=== PATIENT | female | born 1950 | race Caucasian/White ===

== ENCOUNTER 2023-07-23 15:39 | Inpatient (IN) ==
--- NOTE | 2023-07-23 15:53 | Emergency Department Note ---
Impression & Plan Ambulatory dysfunction, Acute bilateral knee pain Admission ED Provider Note HPI: History obtained from patient. The patient is a 73-year-old female who presents the emergency department with chief complaint of a mechanical fall. Patient states she has a longstanding history of bilateral knee pain, she has osteoarthritis and morbid obesity. Patient states that she was recommended to have her knees replaced about 6 to 8 years ago. Patient states that she was standing in her kitchen when her knees "gave out" and she fell to the ground. Patient was able to call her niece who then contacted EMS and the patient was brought to the ED. Patient denies any current focal complaint of pain, she states she was hoping to see a "knee specialist" to help arrange for her to get her surgery since her ambulatory dysfunction is getting worse recently. On arrival here to the ED the patient is otherwise hemodynamically stable, she appears to be in no acute distress on my initial assessment. ROS: - Per HPI Differential Diagnosis: Osteoarthritis, knee fracture, knee dislocation, acute on chronic ambulatory dysfunction secondary to osteoarthritis and morbid obesity, skull fracture, intracranial hemorrhage to include subdural hematoma, amongst other potential pathologies. *Outpatient medications and allergy history reviewed. PE: General: Alert, morbidly obese, no acute distress HEENT: Normocephalic, trachea midline Eyes: Extraocular eye movement is intact, no scleral erythema Pulmonary: Clear to auscultation bilaterally, no wheezing Cardio: Regular rate and rhythm GI: Abdomen is soft to palpation : No suprapubic tenderness MSK: Knees and bilateral braces Skin: No evidence of rash Neuro: Alert, no focal deficits Psychiatric: Cooperative INDEPENDENT INTERPRETATIONS: monitoring tech: (As interpreted by myself): - An order was placed for continuous cardiac monitoring - Patient was noted to be in sinus rhythm with a rate of 70 EKG: (As interpreted by myself): Rate: 85 Rhythm: Sinus rhythm Intervals: Within normal limits ST changes: No ST elevation Time: 1545 Medical Decision Making: IV was established and lab work obtained, lab work shows no leukocytosis, hemoglobin is normal, platelet count is normal, CMP does not show any critical findings, BUN is slightly elevated at 32, glucose is elevated at 249 without any anion gap elevation. CT imaging of the head does not show any evidence of any acute intracranial process. X-ray imaging of the bilateral knees does not show any evidence of fracture or dislocation, osteoarthritis is noted. Patient tells me she cannot ambulate and does not feel comfortable going home, she states that she needs likely to be admitted for PT/OT and she would also like an orthopedic consultation to discuss replacement of her knees. I discussed the patient's presentation with the on-call hospitalist, Dr. Brewer, and the patient was placed for admission in stable condition. Consultants/Discussions held with other healthcare providers: -Hospitalist, Dr. Brewer Disposition discussion held by myself with: -Patient Diagnosis: 1. Ambulatory dysfunction, acute on chronic 2. Mechanical fall, acute 3. Bilateral knee pain, chronic, related to osteoarthritis 4. Morbid obesity Disposition: Admission Sudheer Nath DO Emergency Medicine Past Med/Surg History Problem List (Updated 07/23/23 @ 19:47 by Jakob Jordan PA-C) DMII (diabetes mellitus, type 2) Ambulatory dysfunction Acute bilateral knee pain (Acute) Lymphedema Osteoarthritis of right knee Degenerative joint disease (DJD) of hip (Acute) Medical History Degenerative joint disease (DJD) of hip GERD (gastroesophageal reflux disease) Lymphedema Seizure Surgical History History of hip replacement Social History Smoking Status: Never smoker Preferred Language: Yi Feels Safe at Home: Yes Allergies Allergies Allergy/AdvReac Type Severity Reaction Status Date / Time nickel Allergy Unknown RASH Verified 07/23/23 16:08 pioglitazone Allergy Unknown UNKNOWN Verified 07/23/23 16:08 D/C BY PCP lisinopril AdvReac Mild COUGH Verified 07/23/23 16:08 metformin AdvReac Mild DIARRHEA Verified 07/23/23 16:08 sulfamethoxazole [Bactrim] AdvReac Mild NAUSEA AND Verified 07/23/23 16:08 VOMITING trimethoprim [Bactrim] AdvReac Mild NAUSEA AND Verified 07/23/23 16:08 VOMITING Home Meds Home Medications Medication Instructions Recorded Confirmed atorvastatin 20 mg tablet 20 mg PO HS 09/11/20 07/23/23 losartan 100 mg tablet 100 mg PO QAM 09/11/20 07/23/23 phenobarbital 32.4 mg tablet 64.8 mg PO BID 09/11/20 07/23/23 phenytoin sodium extended 100 mg 200 mg PO BID 09/11/20 07/23/23 capsule (Dilantin Extended) sitagliptin phosphate 100 mg 100 mg PO QAM 09/11/20 07/23/23 tablet (Januvia) folic acid 1 mg tablet 1 mg PO DAILY 01/20/23 07/23/23 torsemide 20 mg tablet 20 mg PO QAM 01/20/23 07/23/23 Results & Data (ED) Vital Signs Vital Signs - 24 hr 07/23/23 15:46 07/23/23 15:47 07/23/23 17:47 Temperature 37.1 C Temperature Source Oral Pulse Rate 90 90 Pulse Rate [Finger] 78 Respiratory Rate 22 18 Blood Pressure 122/65 Blood Pressure [Right Arm] 140/63 Blood Pressure Mean 84 Blood Pressure Mean [Right Arm] 88 Pulse Oximetry 96 94 Oxygen Delivery Method Room Air Room Air Sepsis Recent Fever Within 48 Hours No Sepsis New/Unexplained Change in Mental Status No Sepsis Action Taken by Nursing No Action Required 07/23/23 19:25 Temperature Temperature Source Pulse Rate Pulse Rate [Finger] 77 Respiratory Rate 19 Blood Pressure Blood Pressure [Right Arm] 142/106 H Blood Pressure Mean Blood Pressure Mean [Right Arm] 118 Pulse Oximetry 96 Oxygen Delivery Method Room Air Sepsis Recent Fever Within 48 Hours Sepsis New/Unexplained Change in Mental Status Sepsis Action Taken by Nursing Laboratory Data 07/23/23 15:59 07/23/23 15:59 Lab Results 07/23/23 Range/Units 15:59 WBC 8.97 (4.8-10.8) K/ul RBC 4.56 (4.20-5.40) M/uL Hgb 15.2 (12.0-16.0) g/dl Hct 44.8 (37.0-47.0) % MCV 98.2 (80.0-100.0) fL MCH 33.3 (25.0-34.0) pg MCHC 33.9 (32.0-36.0) g/dL RDW Std Deviation 46.9 H (36.4-46.3) fL RDW Coeff of Anshu 13.1 (11.5-14.5) % Plt Count 164 (130-400) K/uL MPV 9.8 (9.4-12.4) fL Immature Gran % (Auto) 0.4 % Neut % (Auto) 80.3 % Lymph % (Auto) 11.9 % [place] % (Auto) 5.2 % Eos % (Auto) 1.6 % Baso % (Auto) 0.6 % Neut # (Auto) 7.20 H (1.40-6.50) K/uL Lymph # (Auto) 1.07 L (1.20-3.40) K/uL [place] # (Auto) 0.47 (0.11-0.59) K/uL Eos # (Auto) 0.14 (0.00-0.50) K/uL Baso # (Auto) 0.05 (0.00-0.20) K/uL Immature Gran # (Auto) 0.04 (0.01-0.20) K/uL PT 11.6 (9.0-12.0) Seconds INR 1.1 (0.9-1.1) Sodium 136 (136-145) mmol/L Potassium 3.9 (3.5-5.1) mmol/L Chloride 106 (98-107) mmol/L Carbon Dioxide 22 (21-32) mmol/L Anion Gap 8 (3-11) BUN 32 H (6-23) mg/dl Creatinine 0.88 (0.6-1.2) mg/dl Est Cr Clr Drug Dosing 84.5 ml/min Est GFR ( Amer) 75.0 ml/min Est GFR (Non-Af Amer) 64.7 ml/min BUN/Creatinine Ratio 36.4 H (10-20) Glucose 249 H (70-99(Fasting)) mg/dl Calcium 8.6 (8.6-10.3) mg/dl Total Bilirubin 0.5 (0.2-1.0) mg/dl AST 13 (13-39) U/L ALT 13 (7-52) U/L Alkaline Phosphatase 125 H (34-104) U/L Total Protein 6.7 (6.0-8.3) gm/dl Albumin 3.6 (3.4-5.0) gm/dl Globulin 3.1 (2.5-4.0) gm/dl Albumin/Globulin Ratio 1.2 (0.9-2) Lipase 37 (11-82) U/L Administered Medications Discontinued Medications Acetaminophen (Acetaminophen 325 Mg Tab) 650 mg PO NOW STA Stop: 07/23/23 18:01 Last Admin: 07/23/23 19:28 Dose: 650 mg Documented By: ANDREA Imaging Data Radiologist's Impression: Head CT 07/23/23 15:49 CT head/brain wo con CLINICAL HISTORY: 73 years-old Female with fall. Acute trauma status post fall TECHNIQUE: Multiple axial CT images of the head were obtained without contrast. A dose lowering technique was utilized adhering to the principles of ALARA. CT DOSE: 547.75 mGy.cm COMPARISON: None. FINDINGS: No acute intracranial hemorrhage, midline shift, intracranial mass, hydrocephalus, territorial ischemia or abnormal extra-axial collection. Involutional changes with chronic microvascular ischemic disease. The calvarium is intact. Hyperostosis frontalis interna. The paranasal sinuses, mastoid air cells, and middle ear cavities are clear. IMPRESSION: No acute intracranial abnormality or calvarial fracture. ACT 112: Negative or not required by law. The above report was generated using voice recognition software. It may contain grammatical, syntax or spelling errors. Electronically signed by: Jonnie Vargas M.D. 07/23/2023 4:16 PM Knee X-Ray 07/23/23 15:49 XR knee LT 1 or 2V routine, XR knee RT 1 or 2V routine HISTORY: 73 years-old Female fall acute bilateral knee pain status post fall COMPARISON: 01/20/2023 TECHNIQUE: 3 views of bilateral knees FINDINGS: LEFT: Progressive severe tricompartmental osteoarthritis. Trace joint effusion. No acute fracture or dislocation. RIGHT: Progressive severe tricompartmental osteoarthritis. Trace joint effusion. Lower leg soft tissue calcifications. No acute fracture or dislocation. IMPRESSION: Severe arthritis without acute fracture or dislocation. ACT 112: Negative or not required by law. The above report was generated using voice recognition software. It may contain grammatical, syntax or spelling errors. Electronically signed by: Jonnie Vargas M.D. 07/23/2023 5:36 PM Knee X-Ray 07/23/23 15:49 XR knee LT 1 or 2V routine, XR knee RT 1 or 2V routine HISTORY: 73 years-old Female fall acute bilateral knee pain status post fall COMPARISON: 01/20/2023 TECHNIQUE: 3 views of bilateral knees FINDINGS: LEFT: Progressive severe tricompartmental osteoarthritis. Trace joint effusion. No acute fracture or dislocation. RIGHT: Progressive severe tricompartmental osteoarthritis. Trace joint effusion. Lower leg soft tissue calcifications. No acute fracture or dislocation. IMPRESSION: Severe arthritis without acute fracture or dislocation. ACT 112: Negative or not required by law. The above report was generated using voice recognition software. It may contain grammatical, syntax or spelling errors. Electronically signed by: Jonnie Vargas M.D. 07/23/2023 5:36 PM Chest X-Ray 07/23/23 18:10 XR chest 1V portable HISTORY: 73 years-old Female Fall, bruising on chest acute chest trauma COMPARISON: 08/23/2014 TECHNIQUE: AP view the chest FINDINGS: Cardiac silhouette is enlarged. Hiatal hernia. Right hemidiaphragmatic elevation. Mild linear left basilar atelectasis versus scarring. No pneumothorax, pleural effusion or pulmonary edema. Bones appear grossly intact. IMPRESSION: No acute process. ACT 112: Negative or not required by law. The above report was generated using voice recognition software. It may contain grammatical, syntax or spelling errors. Electronically signed by: Jonnie Vargas M.D. 07/23/2023 6:31 PM Discharge Plan Visit Data Chief Complaint: Fall ED Provider: Sudheer Nath Discharge Problem: Ambulatory dysfunction, Acute bilateral knee pain Patient Disposition: Admitted As Inpatient Discharge Instructions Interventions: ED Discharge Assessment Last Done: 07/23/23 19:32 Prescriptions Prescriptions: No Action atorvastatin 20 mg tablet 20 mg PO HS phenytoin sodium extended [Dilantin Extended] 100 mg capsule 200 mg PO BID losartan 100 mg tablet 100 mg PO QAM phenobarbital 32.4 mg tablet 64.8 mg PO BID Januvia 100 mg tablet 100 mg PO QAM torsemide 20 mg tablet 20 mg PO QAM folic acid 1 mg tablet 1 mg PO DAILY
[2023-07-23 16:14] LABS: Basophils # (auto) 0.05 K/uL (0.00-0.20); Basophils % (auto) 0.6 %; Eosinophils # (auto) 0.14 K/uL (0.00-0.50); Eosinophils % (auto) 1.6 %; Hematocrit (blood only) 44.8 % (37.0-47.0); Hemoglobin 15.2 g/dl (12.0-16.0); Immature Granulocytes # (auto) 0.04 K/uL (0.01-0.20); Immature Granulocytes % (auto) 0.4 %; Lymphocytes # (auto) 1.07 K/uL (1.20-3.40); Lymphocytes % (auto) 11.9 %; Mean Corpuscular Hemoglobin 33.3 pg (25.0-34.0); Mean Corpuscular Hgb Conc 33.9 g/dL (32.0-36.0); Mean Corpuscular Volume 98.2 fL (80.0-100.0); Mean Platelet Volume 9.8 fL (9.4-12.4); Monocytes # (auto) 0.47 K/uL (0.11-0.59); Monocytes % (auto) 5.2 %; Neutrophils % (auto) 80.3 %; Platelet Count 164 K/uL (130-400); RDW Coefficient of Variation 13.1 % (11.5-14.5); RDW Standard Deviation 46.9 fL (36.4-46.3); Red Blood Count 4.56 M/uL (4.20-5.40); White Blood Count 8.97 K/ul (4.8-10.8)
--- NOTE | 2023-07-23 16:17 | CT Scan Report ---
CT head/brain wo con CLINICAL HISTORY: 73 years-old Female with fall. Acute trauma status post fall TECHNIQUE: Multiple axial CT images of the head were obtained without contrast. A dose lowering tech nique was utilized adhering to the principles of ALARA. CT DOSE: 547.75 mGy.cm COMPARISON: None. FINDINGS: No acute intracranial hemorrhage, midline shift, intracranial mass, hydrocephalus, territorial ischem ia or abnormal extra-axial collection. Involutional changes with chronic microvascular ischemic disea se. The calvarium is intact. Hyperostosis frontalis interna. The paranasal sinuses, mastoid air cells, an d middle ear cavities are clear. IMPRESSION: No acute intracranial abnormality or calvarial fracture. ACT 112: Negative or not required by law. The above report was generated using voice recognition software. It may contain grammatical, syntax o r spelling errors. Electronically signed by: Jonnie Vargas M.D. 07/23/2023 4:16 PM
[2023-07-23 16:32] LABS: Albumin Globulin Ratio 1.2 (0.9-2); Albumin Level 3.6 gm/dl (3.4-5.0); BUN Creatinine Ratio 36.4 (10-20); Bilirubin,Total 0.5 mg/dl (0.2-1.0); Calcium 8.6 mg/dl (8.6-10.3); Creatinine Clr Calc Pharmacy 84.5 ml/min; Est GFR (Non-African American) 64.7 ml/min; Globulin 3.1 gm/dl (2.5-4.0); Potassium 3.9 mmol/L (3.5-5.1); Total Protein 6.7 gm/dl (6.0-8.3)
[2023-07-23 16:39] LABS: INR 1.1 (0.9-1.1); Prothrombin Time 11.6 Seconds (9.0-12.0)
--- NOTE | 2023-07-23 17:38 | XRay Report ---
XR knee LT 1 or 2V routine, XR knee RT 1 or 2V routine HISTORY: 73 years-old Female fall acute bilateral knee pain status post fall COMPARISON: 01/20/2023 TECHNIQUE: 3 views of bilateral knees FINDINGS: LEFT: Progressive severe tricompartmental osteoarthritis. Trace joint effusion. No acute fracture or disloc ation. RIGHT: Progressive severe tricompartmental osteoarthritis. Trace joint effusion. Lower leg soft tissue calci fications. No acute fracture or dislocation. IMPRESSION: Severe arthritis without acute fracture or dislocation. ACT 112: Negative or not required by law. The above report was generated using voice recognition software. It may contain grammatical, syntax o r spelling errors. Electronically signed by: Jonnie Vargas M.D. 07/23/2023 5:36 PM
--- NOTE | 2023-07-23 17:44 | History & Physical Report ---
Date of Service July 23, 2023 Assessment & Plan (1) Ambulatory dysfunction: Plan: -Admit to med/surge -Stable and non-toxic appearing -Presented to the ED after sustaining a GLF this afternoon -Left knee "gave out" causing fall, no prodromal symptoms -Did hit her head but no LOC -CT of the head/brain wo con and BL xray of the knees were negative for acute findings -Chest xray obtained on admission was negative for acute findings -Is unable to safely ambulate at this time due to pain from BL knee OA -PT/OT consults placed, she will need rehab/placement on discharge -Could consider Orthopedic Surgery consult for possible intervention prior to discharge -Pain control with tylenol for now -SQ Heparin for DVT PPX -HH/DMII diet -AM CBC, BMP, mag (2) Acute bilateral knee pain: Plan: -Patient has severe BL arthritis of the knees -No acute trauma on xrays today -PT/OT, fall precautions -PRN tylenol and tramadol for pain (3) Fall: Plan: -See ambulatory dysfunction (4) Lymphedema: Plan: -Continue home torsemide (5) Seizure: Plan: -No recent seizures -Continue Dilantin and Phenobarbital -Will obtain Dilantin level on admission (6) DMII (diabetes mellitus, type 2): Plan: -Hold Januvia -Monitor BSG ACHS, goal is 110-160 -Start 5 units Lantus BID -CF 30 and CR of 11 -Adjust regimen as needed History of Present Illness Chief Complaint: Fall at home Primary Care Provider: Suleman Fernandez Raysa Hernandez is a 73 year old female with a PMH significant for morbid obesity, arthritis of the BL knees, HTN, hyperlipidemia, DMII, and lymphedema who presented to the [facility] ED via EMS on 07/23/23 after sustaining a ground level fall at home this afternoon. She remained stable in the ED. Labs including CBC and CMP were unremarkable. CT of the head/brain wo con was read as negative for acute findings. BL knee xrays were read as having severe OA BL without acute fractures. We were asked to admit the patient as she is able to be safely discharged home with her ambulatory dysfunction. At the time of the exam the patient was lying in bed in no acute distress. She explains that she was told approximately 6 years that she needed to have both knees replaced due to severe OA. She continued to push this off and has had ongoing ambulatory dysfunction since. She has two large knee braces which have provided some support. She lives at home alone, but has a son who lives next door and two grandchildren who have been trying to help care for her. She states that this am she was in her kitchen walking back to her bedroom to eat lunch. While walking in the hallway her left knee suddenly gave out, causing her to fall forwards. She sustained the upper lip abrasion when her face hit the carpet. She did not lose consciousness and did not have symptoms such as chest pain, SOB, palpitations, lightheadedness, or dizziness prior to her fall. EMS was called as family was unable to get her up. Her only complaints at this time is chronic BL knee pain. She denies any other pain at this time. She explains that she has a right heel ulcer from previously stepping on glass at home. Her Grandson had been cleaning it and putting antibiotic ointment on it daily. 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 We discussed code status, she wishes to be a full code. Her daughter is her POA. Please refer to Dr. Brewer's attestation for any changes to the treatment plan Allergies Allergy/AdvReac Type Severity Reaction Status Date / Time nickel Allergy Unknown RASH Verified 07/23/23 16:08 pioglitazone Allergy Unknown UNKNOWN Verified 07/23/23 16:08 D/C BY PCP lisinopril AdvReac Mild COUGH Verified 07/23/23 16:08 metformin AdvReac Mild DIARRHEA Verified 07/23/23 16:08 sulfamethoxazole [Bactrim] AdvReac Mild NAUSEA AND Verified 07/23/23 16:08 VOMITING trimethoprim [Bactrim] AdvReac Mild NAUSEA AND Verified 07/23/23 16:08 VOMITING Home Medications Medication Instructions Recorded Confirmed Type atorvastatin 20 mg tablet 20 mg PO HS 09/11/20 07/23/23 History losartan 100 mg tablet 100 mg PO QAM 09/11/20 07/23/23 History phenobarbital 32.4 mg tablet 64.8 mg PO BID 09/11/20 07/23/23 History phenytoin sodium extended 100 mg 200 mg PO BID 09/11/20 07/23/23 History capsule (Dilantin Extended) sitagliptin phosphate 100 mg 100 mg PO QAM 09/11/20 07/23/23 History tablet (Januvia) folic acid 1 mg tablet 1 mg PO DAILY 01/20/23 07/23/23 History torsemide 20 mg tablet 20 mg PO QAM 01/20/23 07/23/23 History Past Med/Surg History Problem List (Updated 07/23/23 @ 19:47 by Jakob Jordan PA-C) DMII (diabetes mellitus, type 2) Ambulatory dysfunction Acute bilateral knee pain (Acute) Lymphedema Osteoarthritis of right knee Degenerative joint disease (DJD) of hip (Acute) Medical History Degenerative joint disease (DJD) of hip GERD (gastroesophageal reflux disease) Lymphedema Seizure Surgical History History of hip replacement Social History Smoking Status: Never smoker Preferred Language: Wolof Feels Safe at Home: Yes Physical Exam 2 Physical Exam: Physical Exam: General: In no acute distress, stated age, morbidly obese,chronically ill appearing HEENT: No scleral icterus, pupils around round, symmetrical, and reactive to light, moist mucus membranes, skin abrasion to the left upper lip is not currently bleeding, trachea midline, no thyromegaly Chest/Pulm: Patient with abrasions on the anterior chest from fall, No respiratory distress, symmetrical chest expansion, clear breath sounds throughout Cardiac: RRR, no murmurs noted Abdomen: Negative for ascites and bruising, normoactive bowel sounds, soft, non-tender to palpation throughout Musculoskeletal: Braces noted on the BL knees, no acute trauma on inspection and palpation of the head, neck, BL UE's, chest, abdomen, pelvis, and BL LE's Extremities: Radial, dorsalis pedis, and posterior tibial pulses are intact and symmetrical, chronic lymphedema noted in the BL LE's Skin: Paient with non-infected ulcer of the right heel from previous laceration, no currently draining Neuro: Alert and oriented to person, place, month, year, and president, no focal defects, no tremors noted Psych: No acute distress, calm and cooperative during the exam Results & Data Results & Data Vital Signs (Past 12 Hours) Vital Signs Temp Pulse Resp BP Pulse Ox O2 Del Method 07/23/23 15:47 37.1 C 90 22 122/65 96 Room Air 07/23/23 15:46 90 Laboratory Results Abnormal lab results 07/23/23 Range/Units 15:59 RDW Std Deviation 46.9 H (36.4-46.3) fL Neut # (Auto) 7.20 H (1.40-6.50) K/uL Lymph # (Auto) 1.07 L (1.20-3.40) K/uL BUN 32 H (6-23) mg/dl BUN/Creatinine Ratio 36.4 H (10-20) Glucose 249 H (70-99(Fasting)) mg/dl Alkaline Phosphatase 125 H (34-104) U/L Diagnostic Findings Head CT 07/23/23 15:49 CT head/brain wo con CLINICAL HISTORY: 73 years-old Female with fall. Acute trauma status post fall TECHNIQUE: Multiple axial CT images of the head were obtained without contrast. A dose lowering technique was utilized adhering to the principles of ALARA. CT DOSE: 547.75 mGy.cm COMPARISON: None. FINDINGS: No acute intracranial hemorrhage, midline shift, intracranial mass, hydrocephalus, territorial ischemia or abnormal extra-axial collection. Involutional changes with chronic microvascular ischemic disease. The calvarium is intact. Hyperostosis frontalis interna. The paranasal sinuses, mastoid air cells, and middle ear cavities are clear. IMPRESSION: No acute intracranial abnormality or calvarial fracture. ACT 112: Negative or not required by law. The above report was generated using voice recognition software. It may contain grammatical, syntax or spelling errors. Electronically signed by: Jonnie Vargas M.D. 07/23/2023 4:16 PM Knee X-Ray 07/23/23 15:49 XR knee LT 1 or 2V routine, XR knee RT 1 or 2V routine HISTORY: 73 years-old Female fall acute bilateral knee pain status post fall COMPARISON: 01/20/2023 TECHNIQUE: 3 views of bilateral knees FINDINGS: LEFT: Progressive severe tricompartmental osteoarthritis. Trace joint effusion. No acute fracture or dislocation. RIGHT: Progressive severe tricompartmental osteoarthritis. Trace joint effusion. Lower leg soft tissue calcifications. No acute fracture or dislocation. IMPRESSION: Severe arthritis without acute fracture or dislocation. ACT 112: Negative or not required by law. The above report was generated using voice recognition software. It may contain grammatical, syntax or spelling errors. Electronically signed by: Jonnie Vargas M.D. 07/23/2023 5:36 PM Knee X-Ray 07/23/23 15:49 XR knee LT 1 or 2V routine, XR knee RT 1 or 2V routine HISTORY: 73 years-old Female fall acute bilateral knee pain status post fall COMPARISON: 01/20/2023 TECHNIQUE: 3 views of bilateral knees FINDINGS: LEFT: Progressive severe tricompartmental osteoarthritis. Trace joint effusion. No acute fracture or dislocation. RIGHT: Progressive severe tricompartmental osteoarthritis. Trace joint effusion. Lower leg soft tissue calcifications. No acute fracture or dislocation. IMPRESSION: Severe arthritis without acute fracture or dislocation. ACT 112: Negative or not required by law. The above report was generated using voice recognition software. It may contain grammatical, syntax or spelling errors. Electronically signed by: Jonnie Vargas M.D. 07/23/2023 5:36 PM Chest X-Ray 07/23/23 18:10 XR chest 1V portable HISTORY: 73 years-old Female Fall, bruising on chest acute chest trauma COMPARISON: 08/23/2014 TECHNIQUE: AP view the chest FINDINGS: Cardiac silhouette is enlarged. Hiatal hernia. Right hemidiaphragmatic elevation. Mild linear left basilar atelectasis versus scarring. No pneumothorax, pleural effusion or pulmonary edema. Bones appear grossly intact. IMPRESSION: No acute process. ACT 112: Negative or not required by law. The above report was generated using voice recognition software. It may contain grammatical, syntax or spelling errors. Electronically signed by: Jonnie Vargas M.D. 07/23/2023 6:31 PM ECG Additional Comments: Sinus rhythm with frequent Premature ventricular complexes Left axis deviation Septal infarct , age undetermined Abnormal ECG When compared with ECG of 07-SEP-2014 06:35, Premature ventricular complexes are now Present Septal infarct is now Present T wave inversion no longer evident in Inferior leads Code Status & VTE Plan Code Status Full code VTE Prophylaxis Plan VTE Prophylaxis will be ordered: Yes PG Care Time/CCT Total # of Minutes Spent Total Time Spent with Patient: Total time spent is greater than 50% in coordination of care (as documented) at patient's floor/unit and/or counseling patient: C[place] [address] INT INP/OBS CARE 2/MIN Patient Type Established History Comprehensive Exam Comprehensive Medical Decision Making Moderate Complexity Diagnoses Ambulatory dysfunction R26.2 Acute bilateral knee pain M25.561; M25.562 Fall W19.XXXA Encounter type: initial encounter Lymphedema I89.0 Seizure R56.9 DMII (diabetes mellitus, type 2) E11.9 (3) Fall Encounter type: initial encounter Qualified Code(s): W19.XXXA - Unspecified fall, initial encounter
[2023-07-23] MEDS ORDERED: CARBOHYDRATES FOR HYPOGLYCEMIA PO PRN (18:06)
[2023-07-23] MEDS ORDERED: DEXTROSE 50% 50 ML SYRINGE IV PRN (18:06)
[2023-07-23] MEDS ORDERED: GLUCAGON FOR INJ 1 MG VIAL SQ PRN (18:06)
[2023-07-23] MEDS ORDERED: GLUCOSE 40% GEL 15 GM TUBE PO PRN (18:06)
[2023-07-23] MEDS ORDERED: GLUCOSE 10 TAB/TUBE PO PRN (18:06)
--- NOTE | 2023-07-23 18:33 | XRay Report ---
XR chest 1V portable HISTORY: 73 years-old Female Fall, bruising on chest acute chest trauma COMPARISON: 08/23/2014 TECHNIQUE: AP view the chest FINDINGS: Cardiac silhouette is enlarged. Hiatal hernia. Right hemidiaphragmatic elevation. Mild linear left ba silar atelectasis versus scarring. No pneumothorax, pleural effusion or pulmonary edema. Bones appear grossly intact. IMPRESSION: No acute process. ACT 112: Negative or not required by law. The above report was generated using voice recognition software. It may contain grammatical, syntax o r spelling errors. Electronically signed by: Jonnie Vargas M.D. 07/23/2023 6:31 PM
[2023-07-23] MEDS: ACETAMINOPHEN 325 MG TAB PO STA (19:28)
[2023-07-23] MEDS ORDERED: traMADol HCL 50 MG TABLET PO PRN (19:53)
[2023-07-23] MEDS: INSULIN ASPART PER UNIT CHARGE SC SCH (20:48)
[2023-07-23] MEDS: ACETAMINOPHEN 325 MG TAB PO SCH (21:30)
[2023-07-23] MEDS: HEPARIN SOD 5,000 UNIT/0.5 ML VIAL SQ SCH (21:30)
[2023-07-23] MEDS: PHENobarbitaL 30 MG TAB PO SCH (21:30)
[2023-07-23] MEDS: ATORVASTATIN 20 MG TAB PO SCH (21:30)
[2023-07-23] MEDS: PHENYTOIN SODIUM ER 100 MG CAP PO SCH (21:30)
[2023-07-23] MEDS: BACITRACIN OINT 14 GM TUBE EXT SCH (21:58)
[2023-07-23] MEDS: LANTUS PER UNIT CHARGE SQ SCH (22:03)
[2023-07-24 07:43] LABS: Hematocrit (blood only) 41.3 % (37.0-47.0); Hemoglobin 13.8 g/dl (12.0-16.0); Mean Corpuscular Hemoglobin 32.7 pg (25.0-34.0); Mean Corpuscular Hgb Conc 33.4 g/dL (32.0-36.0); Mean Corpuscular Volume 97.9 fL (80.0-100.0); Mean Platelet Volume 10.1 fL (9.4-12.4); Platelet Count 145 K/uL (130-400); RDW Coefficient of Variation 13.1 % (11.5-14.5); RDW Standard Deviation 47.5 fL (36.4-46.3); Red Blood Count 4.22 M/uL (4.20-5.40); White Blood Count 5.41 K/ul (4.8-10.8)
[2023-07-24 07:55] LABS: BUN Creatinine Ratio 37.1 (10-20); Calcium 8.5 mg/dl (8.6-10.3); Creatinine Clr Calc Pharmacy 120.1 ml/min; Est GFR (Non-African American) 88.8 ml/min; Magnesium 1.8 mg/dl (1.7-2.4); Potassium 3.9 mmol/L (3.5-5.1)
[2023-07-24 08:12] LABS: Estimated Average Glucose 148 mg/dl; Hemoglobin A1C 6.8 % (4.5-5.6)
--- NOTE | 2023-07-24 08:23 | Hospitalist Progress Note ---
Date of Service July 24, 2023 Assessment & Plan (1) Ambulatory dysfunction: Plan: -Pt admitted for ground level mechanical fall from ambulatory dysfunction in setting of severe b/l knee arthritis + R heel ulcer -Head CT negative, CXR negative, XR knees with degenerative arthritic change but no acute findings -PT/OT evaluations pending -Orthopedics consulted (2) Acute bilateral knee pain: Plan: -Patient has severe b/l arthritis of the knees -No acute trauma on admission XR -PT/OT evaluations pending, fall precautions -Scheduled Tylenol and oxycodone PRN for pain control -Orthopedics consult as above (3) Lymphedema: Plan: -Continue home torsemide (4) Seizure: Plan: -No recent seizures -Continue Dilantin and phenobarbital -Dilantin level on admission pending (5) DMII (diabetes mellitus, type 2): Plan: -Hold Januvia -Monitor BSG ACHS, goal is 110-160 -Lantus, SSI -Adjust regimen as needed (6) Heel ulcer: Plan: -R heel ulcer noted, likely contributing as well to ambulatory dysfunction -Does not appear acutely infected at present -Wound care consulted Plan FENGI: DM2 Code status: Full DVT prophylaxis: Lovenox Isolation: None Unit: Medical/surgical Disposition planning: Pending PT/OT Admission and Anticipated Discharge Date Admission Date: July 23, 2023 Supervising Physician Co-Signing Physician Notes Attending attestation Pt seen and examined in concert with Dr. Mcfarland. In agreement with the documented findings as noted in the resident documentation with any exceptions or additions as noted here. Ongoing bilateral knee pain which is ameliorated with position and offloading. Though heel pain has been present for 3 years per patient, recently noted ulcer of the heel and presumes time of extravasation. Unsure how long the ulcer has actually been there. Reviewed with patient that this may have been chronically present and painful. On examination, S1/S2 nl RRR no MCG. CTAB. Abd NT/ND BS+ve. Ulcer per image in HPI. No gross sensory deficit appreciated on examination. Bilateral knee osteoarthritis, acute on chronic, resulting in ambulatory dysfunction and ground level fall - PT/OT and ortho consult - open to rehabilitation services and interventions. Pain control as noted. Right heel ulcer, chronic, POA - unhealing, likely contributed to fall 2/2 pain and location. Wound care consult. No overt sign of infection at present. Monitor CBC. Lymphedema, chronic, stable - continue diuresis and monitor BMP daily DMII - continue glargine and ISS Else see resident documentation as noted. Subjective Acute events overnight- none. Pt examined at bedside. Denies any acute pain beyond baseline at present. Review of Systems 2 Review of Systems: Per HPI/Subjective Physical Exam 2 Physical Exam: Physical Exam: General: In no acute distress, stated age, morbidly obese, chronically ill appearing HEENT: No scleral icterus, moist mucus membranes, trachea midline Chest: Patient with abrasions on the anterior chest from fall, No respiratory distress, symmetrical chest expansion, clear breath sounds throughout Cardiac: RRR, no murmurs noted Musculoskeletal: Braces noted over the b/l knees, deferred ROM testing due to pain with movement Extremities: Chronic lymphedema noted in the b/l LE's, palpable b/l distal pulses 2+ Skin: Non-infected ulcer of the right heel from previous laceration, not currently draining Neuro: Alert and oriented, no focal defects, no tremors noted Psych: No acute distress, calm and cooperative during the exam Image below is from admission exam on 07/22 Results & Data Results & Data Vital Signs (Past 12 Hours) Vital Signs Temp Pulse Resp BP Pulse Ox O2 Del Method 07/24/23 07:37 36.6 C 65 16 134/70 93 Room Air
[2023-07-24] MEDS: LOSARTAN POTASSIUM 50 MG TAB PO SCH (08:55)
[2023-07-24] MEDS: TORSEMIDE 20 MG TAB PO SCH (08:55)
--- NOTE | 2023-07-24 09:04 | Electrocardiogram Report ---
Test Reason : Blood Pressure : / mmHG Vent. Rate : 085 BPM Atrial Rate : 085 BPM P-R Int : 194 ms QRS Dur : 090 ms QT Int : 394 ms P-R-T Axes : 077 -39 031 degrees QTc Int : 468 ms Sinus rhythm with frequent Premature ventricular complexes Left axis deviation Abnormal ECG When compared with ECG of 07-SEP-2014 06:35, Premature ventricular complexes are now Present Confirmed by Bc Jacques ([id number]) on 07/24/2023 9:04:03 AM Referred By: REFERRED SELF Confirmed By:Bc Jacques
[2023-07-24] MEDS ORDERED: oxyCODONE HCL IR 5 MG TAB (IMMEDIATE RELEASE) PO PRN (09:12)
--- NOTE | 2023-07-24 09:18 | Electrocardiogram Report ---
Test Reason : Blood Pressure : / mmHG Vent. Rate : 075 BPM Atrial Rate : 075 BPM P-R Int : 164 ms QRS Dur : 090 ms QT Int : 418 ms P-R-T Axes : 035 -43 051 degrees QTc Int : 466 ms Normal sinus rhythm Left axis deviation Abnormal ECG When compared with ECG of 23-JUL-2023 15:45, Premature ventricular complexes are no longer Present Confirmed by Bc Jacques ([id number]) on 07/24/2023 9:17:47 AM Referred By: REFERRED SELF Confirmed By:Bc Jacques
--- NOTE | 2023-07-24 10:37 | Orthopedic Consultation ---
Date of Service July 24, 2023 Assessment & Plan (1) Osteoarthritis of knees, bilateral: 1. Recommend the patient try to get up and transfer to a chair or ambulate with assistance to prevent blood clots 2. Recommend PT/OT with a b/l knee strengthening program 3. Patient may not be a good surgical candidate at this time due to comorbidities and deconditioning of lower extremities 4. Possible penitentiary care while ambulatory function is addressed? Patient was seen at bedside with Dr. Varner. He was present for the HX, PE, and plan and agrees with this course of action. History of Present Illness Reason for Consultation: . Requesting Physician: . Attending Physician: Bill Duarte MD Patient is a 73 y/o female presenting to [facility] yesterday, 07/23/23, with an unwitnessed fall. She states that her left knee gave on her. She fell down and was unable to get up due to pain and weakness. She was brought to [facility] ER and evaluated. No fractures or head trauma were identified. She has a HX of severe B/L OA of her knees. She was seen in ortho 1 year ago. Corticosteroid injections failed to give her any symptomatic relief at that time. She was not a good surgical candidate at the time due to DM2 and lymphedema in her lower extremities. She currently lives alone in a single level home. Allergies Allergy/AdvReac Type Severity Reaction Status Date / Time nickel Allergy Unknown RASH Verified 07/23/23 16:08 pioglitazone Allergy Unknown UNKNOWN Verified 07/23/23 16:08 D/C BY PCP lisinopril AdvReac Mild COUGH Verified 07/23/23 16:08 metformin AdvReac Mild DIARRHEA Verified 07/23/23 16:08 sulfamethoxazole [Bactrim] AdvReac Mild NAUSEA AND Verified 07/23/23 16:08 VOMITING trimethoprim [Bactrim] AdvReac Mild NAUSEA AND Verified 07/23/23 16:08 VOMITING Home Medications Medication Instructions Recorded Confirmed Type atorvastatin 20 mg tablet 20 mg PO HS 09/11/20 07/23/23 History losartan 100 mg tablet 100 mg PO QAM 09/11/20 07/23/23 History phenobarbital 32.4 mg tablet 64.8 mg PO BID 09/11/20 07/23/23 History phenytoin sodium extended 100 mg 200 mg PO BID 09/11/20 07/23/23 History capsule (Dilantin Extended) sitagliptin phosphate 100 mg 100 mg PO QAM 09/11/20 07/23/23 History tablet (Januvia) folic acid 1 mg tablet 1 mg PO DAILY 01/20/23 07/23/23 History torsemide 20 mg tablet 20 mg PO QAM 01/20/23 07/23/23 History Past Med/Surg History Problem List (Updated 07/24/23 @ 10:32 by Daniel Meyers PA-C) Osteoarthritis of knees, bilateral Heel ulcer DMII (diabetes mellitus, type 2) Ambulatory dysfunction Acute bilateral knee pain (Acute) Lymphedema Osteoarthritis of right knee Degenerative joint disease (DJD) of hip (Acute) Medical History Seizure GERD (gastroesophageal reflux disease) Lymphedema Surgical History History of hip replacement Social History Smoking Status: Never smoker Hx Alcohol Use: No Hx Substance Use: No Preferred Language: Divehi Communication Ability: Effective [place] Carpenter Required: No Beliefs That Will Affect Care: None Current Living Situation: Alone Current Living Situation Comment: SON LIVES CLOSE BY AND NIECE ALSO VISITS REGULARLY Feels Safe at Home: Yes Safety Concerns: Feels Safe At This Time Assistive Devices: Brace/Splint/Immobilizer and Cane Review of Systems All systems reviewed & are unremarkable except as noted in HPI & below. Physical Exam Patient is resting comfortably in bed. She has an obvious b/l valgus deformity of both knees. Evidence of lymphedema in her RLE. She has pain to palpation both medial and lateral joint lines b/l. Slight knee effusion to her left knee. She is able to do a straight leg raise LLE but assisted straight leg raise in RLE. Neurovasularly intact. Results & Data Results & Data Laboratory Results . Diagnostic Findings . PG Care Time/CCT Total # of Minutes Spent Total Time Spent with Patient: Total time spent is greater than 50% in coordination of care (as documented) at patient's floor/unit and/or counseling patient: Coding Level of Care Code 76331 IN/OBS CONSULT LVL 3,45M Diagnoses Osteoarthritis of knees, bilateral M17.0
--- NOTE | 2023-07-25 07:47 | Hospitalist Progress Note ---
Date of Service July 25, 2023 Assessment & Plan (1) Ambulatory dysfunction: Plan: -Pt admitted for ground level mechanical fall from ambulatory dysfunction in setting of severe b/l knee arthritis + R heel ulcer -Head CT negative, CXR negative, XR knees with degenerative arthritic change but no acute findings -PT/OT evaluations pending -Orthopedics consulted (2) Acute bilateral knee pain: Plan: -Patient has severe b/l arthritis of the knees -No acute trauma on admission XR -PT/OT evaluations pending, fall precautions -Scheduled Tylenol and oxycodone PRN for pain control -Orthopedics consult as above (3) Fall: Plan: -See ambulatory dysfunction (4) Lymphedema: Plan: -Continue home torsemide (5) Seizure: Plan: -No recent seizures -Continue Dilantin and phenobarbital -Dilantin level on admission pending (6) DMII (diabetes mellitus, type 2): Plan: -Hold Januvia -Monitor BSG ACHS, goal is 110-160 -Lantus, SSI -Adjust regimen as needed (7) Heel ulcer: Plan: -R heel ulcer noted, likely contributing as well to ambulatory dysfunction -Does not appear acutely infected at present -Wound care consulted Plan FENGI: DM2 Code status: Full DVT prophylaxis: Lovenox Isolation: None Unit: Medical/surgical Disposition planning: Pending PT/OT Admission and Anticipated Discharge Date Admission Date: July 23, 2023 Review of Systems Review of Systems: As per above Physical Exam Physical Exam: Constitutional: well-appearing, no acute distress HEENT: NCAT, no conjunctival injection CV: regular rhythm, no murmur appreciated, extremities well-perfused, no LE edema Resp: CTABL, no wheezes/rales/rhonchi appreciated, no increased work of breathing GI: soft, nondistended, nontender, BS normoactive MSK: no gross deformities appreciated Skin: warm, dry, no rash appreciated Neuro: alert, oriented, no focal neurologic deficit appreciated Results & Data Results & Data Vital Signs (Past 12 Hours) Vital Signs Pulse Ox O2 Del Method 07/24/23 23:35 95 Room Air 07/24/23 23:12 Room Air (3) Fall Encounter type: initial encounter Qualified Code(s): W19.XXXA - Unspecified fall, initial encounter
[2023-07-25 08:40] LABS: Hematocrit (blood only) 42.8 % (37.0-47.0); Mean Corpuscular Hemoglobin 32.2 pg (25.0-34.0); Mean Corpuscular Hgb Conc 32.7 g/dL (32.0-36.0); Mean Corpuscular Volume 98.4 fL (80.0-100.0); Mean Platelet Volume 10.2 fL (9.4-12.4); Platelet Count 138 K/uL (130-400); RDW Coefficient of Variation 13.1 % (11.5-14.5); Red Blood Count 4.35 M/uL (4.20-5.40)
[2023-07-25 08:55] LABS: BUN Creatinine Ratio 21.3 (10-20); Calcium 8.5 mg/dl (8.6-10.3); Creatinine Clr Calc Pharmacy 98.8 ml/min; Est GFR (Non-African American) 78.5 ml/min
--- NOTE | 2023-07-25 13:45 | Discharge Summary ---
Date of Service July 25, 2023 Admission HPI Per Admitting Provider Raysa Hernandez is a 73 year old female with a PMH significant for morbid obesity, arthritis of the BL knees, HTN, hyperlipidemia, DMII, and lymphedema who presented to the [facility] ED via EMS on 07/23/23 after sustaining a ground level fall at home this afternoon. She remained stable in the ED. Labs including CBC and CMP were unremarkable. CT of the head/brain wo con was read as negative for acute findings. BL knee xrays were read as having severe OA BL without acute fractures. We were asked to admit the patient as she is able to be safely discharged home with her ambulatory dysfunction. At the time of the exam the patient was lying in bed in no acute distress. She explains that she was told approximately 6 years that she needed to have both knees replaced due to severe OA. She continued to push this off and has had ongoing ambulatory dysfunction since. She has two large knee braces which have provided some support. She lives at home alone, but has a son who lives next door and two grandchildren who have been trying to help care for her. She states that this am she was in her kitchen walking back to her bedroom to eat lunch. While walking in the hallway her left knee suddenly gave out, causing her to fall forwards. She sustained the upper lip abrasion when her face hit the carpet. She did not lose consciousness and did not have symptoms such as chest pain, SOB, palpitations, lightheadedness, or dizziness prior to her fall. EMS was called as family was unable to get her up. Her only complaints at this time is chronic BL knee pain. She denies any other pain at this time. She explains that she has a right heel ulcer from previously stepping on glass at home. Her Grandson had been cleaning it and putting antibiotic ointment on it daily. 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 We discussed code status, she wishes to be a full code. Her daughter is her POA. Please refer to Dr. Brewer's attestation for any changes to the treatment plan Principal Diagnosis Ambulatory Dysfunction Discharge Exam Constitutional: well-appearing, no acute distress HEENT: NCAT, no conjunctival injection CV: regular rhythm, no murmur appreciated, extremities well-perfused, B/L lymphadenoma Resp: CTABL, no wheezes/rales/rhonchi appreciated, no increased work of breathing GI: soft, nondistended, nontender MSK: no gross deformities appreciated Skin: warm, dry, no rash appreciated Neuro: alert, oriented, no focal neurologic deficit appreciated Discharge Data Allergies Allergy/AdvReac Type Severity Reaction Status Date / Time nickel Allergy Unknown RASH Verified 07/23/23 16:08 pioglitazone Allergy Unknown UNKNOWN Verified 07/23/23 16:08 D/C BY PCP lisinopril AdvReac Mild COUGH Verified 07/23/23 16:08 metformin AdvReac Mild DIARRHEA Verified 07/23/23 16:08 sulfamethoxazole [Bactrim] AdvReac Mild NAUSEA AND Verified 07/23/23 16:08 VOMITING trimethoprim [Bactrim] AdvReac Mild NAUSEA AND Verified 07/23/23 16:08 VOMITING Consultations 07/23/23 17:36 ED Decision to Admit Stat 07/24/23 08:19 Consult Orthopedic Surgery Routine Ordered Studies 07/23/23 15:49 CT head/brain wo con Stat Hospital Course (1) Ambulatory dysfunction: -Pt admitted for ground level mechanical fall from ambulatory dysfunction in setting of severe b/l knee arthritis + R heel ulcer -Head CT negative, CXR negative, XR knees with degenerative arthritic change but no acute findings -PT/OT evaluations pending- Did well with PT and wants to go home so plan for home PT - will be d/c with a walker -Orthopedics consulted and no plan for surgery now. Recommended continued PT/OT (2) Acute bilateral knee pain: -Patient has severe b/l arthritis of the knees -No acute trauma on admission XR - Plan as per above (3) Lymphedema: -Continue home torsemide (4) Seizure: -No recent seizures -Continue Dilantin and phenobarbital (5) DMII (diabetes mellitus, type 2): - resume home medications upon d/c (6) Heel ulcer: -R heel ulcer noted, likely contributing as well to ambulatory dysfunction -Does not appear acutely infected at present - will refer to wound clinic for outpatient f/u Total Time Total Time Spent Total Time Spent (In Minutes): <30 Discharge Plan Discharge Items Patient Disposition: Home - Self-Care Reason For Visit: FALL, AMBULATORY DYSFUNCTION, RIGHT HEEL ULCER Discharge Diagnosis: Ambulatory Dysfunction Activity: Per Instructions section Non-emergency contact: Primary Care Provider Call non-emergency contact if: you have any medication questions and your symptoms worsen Follow-up/Referrals: Zoe Huang PA-C [[facility]] - Suleman Fernandez [Primary Care Provider] - 07/28/23 11:45 am Diet: Regular Addtl Attending Provider Instructions: You were admitted with concern for recent falls at home. All of the imaging that you had done did not show any acute changes. Orthopedics saw you and recommend PT for your osteoarthritis to help with strengthening and hlep to prevent future falls. We are working to set up home PT/OT. We are going to send you home with a walker that you should use at home. You should follow up with your PCP this week. For the wound on your heel, we would like you to follow-up with the wound clinic. We will put in a referral to be seen in their clinic. We did not make any changes to your home medications. Pending Studies at Discharge: No Stand-Alone Forms: My [facility]tag, Smoking Cessation Medications and DC Order Prescriptions: Continued atorvastatin 20 mg tablet 20 mg PO HS phenytoin sodium extended [Dilantin Extended] 100 mg capsule 200 mg PO BID losartan 100 mg tablet 100 mg PO QAM phenobarbital 32.4 mg tablet 64.8 mg PO BID Januvia 100 mg tablet 100 mg PO QAM torsemide 20 mg tablet 20 mg PO QAM folic acid 1 mg tablet 1 mg PO DAILY Discharge Orders: Discharge Order (Routine); Ordered 07/25/23 Ordered By: Marcie Boone/Other Patient Handouts: Nutrition for Wound Healing, Managing Type 2 Diabetes Admission Data Admit Date/Time: 07/23/23 18:05 Attending Provider: Arcadio Kitchen Admit Provider: Richard Brewer Primary Care Provider: Suleman Fernandez Other Providers: Richard Brewer; Jakob Montenegro; Mckayla Lane; Brenda Davis; Coel Bains; Loren Chahal; Kirt Varner; Seema Mcfadden; Lemuel Betts; Daniel Meyers; Daniella Fernandez; Daniel Lawler; Jonnie Feng; Debbie,[facility] Other Interventions: Discharge Summary Assessment (RN) Last Done: 07/25/23 15:47 Supervising Physician Co-Signing Physician Notes I personally examined the patient and verified all mckay points of history and exam, discussed case, and agree with decision making with Dr Galicia Would like ongoing therapy, does feel up to going home. PT notes corroborate that this is realistic. Case management was in the room discussing therapy options with her whenever I arrived. Vitals noted, in general she is awake and alert pleasant no distress. HEENT normocephalic atraumatic mucous membranes moist. Breathing unlabored no accessory muscle use good effort. Skin shows no rashes no pallor or icterus. Neuro without focal deficits. Bilateral knee osteoarthritis, acute on chronic, resulting in ambulatory dysfu nction and ground level fall - PT/OT Ongoing eval and treatPT as an outpatient. Morbid obesity with a BMI of 42.7 probably contributestherapy should help with range of motion/mobility stress strengthening. Safe/stable for home. Right heel ulcer, chronic, POA - unhealing, likely contributed to fall 2/2 pain and location. Outpatient wound care Lymphedema, chronic, stable - outpatient follow-up DMII - Home meds/outpatient follow-up. Otherwise as above Resident Activity Tracking Resident Involvement: Resident Care Provided Care Provided: Adult Hospital Medicine
--- NOTE | 2023-07-25 18:25 | Billing Data ---
Date of Service July 25, 2023 Coding Level of Care Code 79270 IN/OBS DISCH 30 MIN/LESS
== END 2023-07-25 17:14 | disposition home or self-care (01) | DRG 554 ==
LOC: ED 15:39 → SUATTDRO 18:05 → 3N 18:05